=== PATIENT | female | born 1980 | race Caucasian/White ===

== ENCOUNTER → 2016-09-22 | Outpatient (CLI) | payer OTHER | LOC: LABWHC1 09:16 | PROVIDERS: ATTEND Internal Medicine | DX: E03.9 Hypothyroidism, unspecified (principal) | CPT/HCPCS: 36415; 84439; 84443 ==

== ENCOUNTER 2017-02-06 11:38 | Emergency (ER) | payer OTHER ==
[2017-02-06] MEDS ORDERED: DIPH,PERTUS(ACELL)TETVAC-LF 0.5 ML VIAL IM ONE (11:59)
[2017-02-06] MEDS ORDERED: TOBRAMYCIN 0.3% OPHTH OINT 3.5 GM TUBE RIGHT EYE STA (12:05)
--- NOTE | 2017-02-06 12:07 | ED ---
General Adult HPI - General Chief complaint: Eye Problems Stated complaint: RT EYE INJURY Time Seen by Provider: 02/06/17 11:47 Source: patient, family, RN notes reviewed Mode of arrival: ambulatory Limitations: no limitations - History of Present Illness Initial comments: Chief complaint history of present illness a 36-year-old female here with family. She reports she accidentally touched her right eye with a piece of paper on the job last night she presents today with discomfort to her eye and tearing. - Related Data Home Medications Medication Instructions Recorded Confirmed Levothyroxine Sodium [Synthroid] 75 mcg PO DAILY 02/13/15 03/14/15 Lisinopril [Zestril] 5 mg PO DAILY 02/13/15 03/14/15 Pioglitazone [Actos] 30 mg PO DAILY 02/13/15 03/14/15 metFORMIN HCL 1,000 mg PO BID 02/13/15 03/14/15 sitaGLIPtin [Januvia] 100 mg PO DAILY 02/13/15 03/14/15 Allergies Allergy/AdvReac Type Severity Reaction Status Date / Time No Known Allergies Allergy Verified 02/06/17 11:45 Review of Systems ROS Statement: Those systems with pertinent positive or pertinent negative responses have been documented in the HPI. Review of systems no other complaints or problems other than discomfort to her right eye as noted in the chief complaint. The patient's tetanus shot needs to be updated. All systems are reviewed. Past medical problems significant for diabetes for the past 5 years. Her surgeries include left toe amputation. She' s also had cataract surgery and Lasix surgery on her eyes. Family history no cancers. Patient denies ALLERGIES, denies smoking, denies alcohol use. ROS Other: All systems not noted in ROS Statement are negative. Past Medical History Past Medical History: Diabetes Mellitus, Thyroid Disorder Additional Past Medical History / Comment(s): heart murmus, neuropathy hands and feet, wound 2nd toe left foot History of Any Multi-Drug Resistant Organisms: MRSA Date of last positivie culture/infection: 07/19/2011 MDRO Source:: left great toe Additional Past Surgical History / Comment(s): amputation left great toe Past Anesthesia/Blood Transfusion Reactions: No Reported Reaction Past Psychological History: No Psychological Hx Reported Smoking Status: Never smoker Past Alcohol Use History: None Reported Past Drug Use History: None Reported - Past Family History Mother Family Medical History: No Reported History General Exam - General Exam Comments Initial Comments: General: The patient is awake and alert, complaining of discomfort to her right eye is noted in the chief complaint. Vital signs shows temperature 98.0 pulse 71 respiratory rate 18 pulse ox on percent room air blood pressure 121/71 Eye: Pupils are equal, round and reactive to light, extra-ocular movements are intact ; there is normal conjunctiva bilaterally. Extraocular movements normal. Visual acuity left eye 20/70 right eye 20/70 and together 20/70. Examination of the eye with floor seen after being numbed with proparacaine finds a small area of irritation at approximately the 8 o'clock position. Examination with the ophthalmoscope shows no significant injury to the cornea other than fluorescein uptake. No ulcer. The patient will be placed on Tobrex ophthalmic ointment for comfort with an ice pack over the eye as needed. And ibuprofen for pain. If not Cohen's of normal 36 hours she been advised follow-up with her eye doctor who she sees regularly. Limitations: no limitations Course Vital Signs 02/06/17 11:43 Temperature 98.0 F Pulse Rate 71 Respiratory 18 Rate Blood Pressure 121/71 O2 Sat by Pulse 100 Oximetry Disposition Clinical Impression: Right corneal abrasion Disposition: HOME SELF-CARE Condition: Fair Instructions: Corneal Abrasion (ED) Additional Instructions: Follow-up with your construction flagger if not 100% normal and [address] Tobrex ophthalmic ointment in the affected eye every 4-6 hours for comfort Referrals: Leni Flanagan MD [Primary Care Provider] - 1-2 days Time of Disposition: 12:07
[2017-02-06 12:29] VITALS: BP 126/66; PULSE 60; RESP 16; TEMP 97.8
== END 2017-02-06 12:46 | disposition home or self-care (01) ==
LOC: EC 11:38
DX: S05.01XA Injury of conjunctiva and corneal abrasion without foreign body, right eye, initial encounter (principal); E11.9 Type 2 diabetes mellitus without complications; E07.9 Disorder of thyroid, unspecified; Z23 Encounter for immunization; Z79.84 Long term (current) use of oral hypoglycemic drugs; Z79.899 Other long term (current) drug therapy; W20.8XXA Other cause of strike by thrown, projected or falling object, initial encounter; Y99.0 Civilian activity done for income or pay; Y92.69 Other specified industrial and construction area as the place of occurrence of the external cause
CPT/HCPCS: 90471; 90715; 99283

== ENCOUNTER → 2017-04-22 | Outpatient (CLI) | payer OTHER | END | disposition home or self-care (01) | LOC: LABWHC1 09:53 | PROVIDERS: ATTEND Internal Medicine | DX: E03.9 Hypothyroidism, unspecified (principal) | CPT/HCPCS: 36415; 84439; 84443 ==

== ENCOUNTER → 2019-01-13 | Outpatient (CLI) | payer OTHER ==
--- NOTE | 2019-01-13 14:45 | US ---
EXAMINATION TYPE: US abdomen complete DATE OF EXAM: 01/13/2019 COMPARISON: NONE CLINICAL HISTORY: R10.11 RUQ ABD PAIN, patient states that she has had vomiting x 4 days and hasn't e aten for 5 days EXAM MEASUREMENTS: Liver Length: 12.5 cm Gallbladder Wall: 0.1 cm CBD: 0.3 cm Spleen: 10.2 cm Right Kidney: 12.4 x 4.1 x 4.2 cm Left Kidney: 11.4 x 5.1 x 4.2 cm Severe overlying bowel gas, obscuring pancreas and left lobe of liver Pancreas: Obscured by bowel gas Liver: wnl Gallbladder: wnl Evidence for sonographic Moore's sign: no CBD: wnl Spleen: wnl Right Kidney: No hydronephrosis or masses seen, junctional parenchymal defect Left Kidney: No hydronephrosis or masses seen Upper IVC: wnl Abd Aorta: partially obscured, portions visualized wnl The liver is homogenous. The intrahepatic portion of the IVC and proximal abdominal aorta are within normal limits. There is no evidence of cholelithiasis. Common bile duct is unremarkable. The visu alized portions of the pancreas are homogenous. The spleen is unremarkable. Kidneys are symmetric a nd free of hydronephrosis. No renal lesions are seen. IMPRESSION: No significant abnormality appreciated.
== END | disposition home or self-care (01) ==
LOC: RADUSWWP 13:54
PROVIDERS: ATTEND Internal Medicine
DX: R10.11 Right upper quadrant pain (principal)
CPT/HCPCS: 76700

== ENCOUNTER 2019-01-15 07:32 | Observation (INO) | payer OTHER ==
[2019-01-15] MEDS ORDERED: ONDANSETRON 4 MG/2 ML VIAL IVP STA (07:54)
[2019-01-15] MEDS ORDERED: SODIUM CHLORIDE 0.9% 1,000 ML IV STA (07:54)
--- NOTE | 2019-01-15 08:07 | ED ---
General Adult HPI - General Chief complaint: Nausea/Vomiting/Diarrhea Stated complaint: vomiting Time Seen by Provider: 01/15/19 07:37 Source: patient, RN notes reviewed, old records reviewed Mode of arrival: ambulatory Limitations: no limitations - History of Present Illness Initial comments: 38-year-old female history of hypertension diabetes presents for evaluation of nausea vomiting which began 5 days prior. She had initially quite severe vomiting. This had subsided for approximately 24 hours and then returned this morning. She has not been able to tolerate much to be or drink over the past 5 days. She denies diarrhea. She's had some mild epigastric abdominal pain worse with vomiting. She had an ultrasound done as an outpatient 2 days prior which was reported as normal. Denies fever or chills. Denies chest pain or dyspnea. - Related Data Home Medications Medication Instructions Recorded Confirmed Lisinopril [Zestril] 5 mg PO DAILY 02/13/15 01/15/19 Pioglitazone [Actos] 30 mg PO DAILY 02/13/15 01/15/19 metFORMIN HCL 1,000 mg PO BID 02/13/15 01/15/19 Atorvastatin [Lipitor] 40 mg PO HS 02/06/17 01/15/19 Levothyroxine Sodium [Synthroid] 125 mcg PO DAILY 02/06/17 01/15/19 sitaGLIPtin [Januvia] 50 mg PO DAILY 02/06/17 01/15/19 Celexa (Unknown Dose) 1 tab PO DAILY 01/15/19 01/15/19 Allergies Allergy/AdvReac Type Severity Reaction Status Date / Time No Known Allergies Allergy Verified 01/15/19 08:50 Review of Systems ROS Statement: Those systems with pertinent positive or pertinent negative responses have been documented in the HPI. ROS Other: All systems not noted in ROS Statement are negative. Past Medical History Past Medical History: Diabetes Mellitus, Thyroid Disorder Additional Past Medical History / Comment(s): heart murmus, neuropathy hands and feet, wound 2nd toe left foot History of Any Multi-Drug Resistant Organisms: MRSA Date of last positivie culture/infection: 07/19/2011 MDRO Source:: left great toe Additional Past Surgical History / Comment(s): amputation left great toe Past Anesthesia/Blood Transfusion Reactions: No Reported Reaction Past Psychological History: No Psychological Hx Reported Smoking Status: Never smoker Past Alcohol Use History: None Reported Past Drug Use History: None Reported - Past Family History Mother Family Medical History: No Reported History General Exam Limitations: no limitations General appearance: alert, in no apparent distress Head exam: Present: atraumatic, normocephalic Eye exam: Present: normal appearance, PERRL ENT exam: Present: mucous membranes dry Neck exam: Present: normal inspection. Absent: tenderness, meningismus Respiratory exam: Present: normal lung sounds bilaterally. Absent: respiratory distress, wheezes Cardiovascular Exam: Present: regular rate, normal rhythm GI/Abdominal exam: Present: soft. Absent: distended, tenderness, guarding, rebound Extremities exam: Present: normal inspection, normal capillary refill. Absent: pedal edema, calf tenderness Neurological exam: Present: alert, oriented X3, CN II-XII intact. Absent: motor sensory deficit Psychiatric exam: Present: normal affect, normal mood Skin exam: Present: warm, dry, intact, cyanosis, diaphoretic Course Vital Signs 01/15/19 01/15/19 01/15/19 07:37 09:00 09:30 Temperature 98.3 F Pulse Rate 83 Respiratory 16 18 18 Rate Blood Pressure 127/80 163/92 167/85 O2 Sat by Pulse 99 97 98 Oximetry EKG Findings - EKG Comments: EKG Findings:: Normal sinus rhythm, rate of 67, ME interval 162, QRS duration 96, QTC [address] segment elevation. Medical Decision Making - Medical Decision Making 38-year-old female past medical history of hypertension, diabetes presenting with ongoing nausea vomiting for 5 days. Patient does appear dehydrated on exam. Genital outpatient ultrasound of the abdomen 2 days ago which was reviewed and was unremarkable. X-ray negative for obstruction or free air today. Patient has a transaminitis including hyponatremia sodium 135, chloride is 91. She has calcium of health 0.6. Urinalysis is negative. She has persistent symptoms of nausea and vomiting. She will be admitted for continuous IV hydration. Magnesium, phosphorus, PTH, ionized calcium will be added to laboratory testing, these are pending. EKG was obtained and this shows sinus rhythm with normal intervals, and QRS complex. Diagnosis: Nausea vomiting, dehydration, hypercalcemia - Lab Data Result diagrams: 01/15/19 08:30 01/15/19 08:30 Lab Results 01/15/19 01/15/19 01/15/19 Range/Units 08:30 08:30 09:18 WBC 8.3 (3.8-10.6) k/uL RBC 4.42 (3.80-5.40) m/uL Hgb 13.0 (11.4-16.0) gm/dL Hct 38.6 (34.0-46.0) % MCV 87.4 (80.0-100.0) fL MCH 29.5 (25.0-35.0) pg MCHC 33.7 (31.0-37.0) g/dL RDW 13.6 (11.5-15.5) % Plt Count 305 (150-450) k/uL Neutrophils % 75 % Lymphocytes % 15 % Monocytes % 6 % Eosinophils % 1 % Basophils % 0 % Neutrophils # 6.2 (1.3-7.7) k/uL Lymphocytes # 1.3 (1.0-4.8) k/uL Monocytes # 0.5 (0-1.0) k/uL Eosinophils # 0.1 (0-0.7) k/uL Basophils # 0.0 (0-0.2) k/uL Sodium 135 L (137-145) mmol/L Potassium 3.6 (3.5-5.1) mmol/L Chloride 91 L (98-107) mmol/L Carbon Dioxide 30 (22-30) mmol/L Anion Gap 14 mmol/L BUN 10 (7-17) mg/dL Creatinine 0.89 (0.52-1.04) mg/dL Est GFR (CKD-EPI)AfAm >90 (>60 ml/min/1.73 sqM) Est GFR (CKD-EPI)NonAf 83 (>60 ml/min/1.73 sqM) Glucose 146 H (74-99) mg/dL Calcium 12.6 H (8.4-10.2) mg/dL Total Bilirubin 0.8 (0.2-1.3) mg/dL AST 28 (14-36) U/L ALT 21 (9-52) U/L Alkaline Phosphatase 74 (38-126) U/L Total Protein 9.3 H (6.3-8.2) g/dL Albumin 5.3 H (3.5-5.0) g/dL Amylase 61 (30-110) U/L Lipase 111 (23-300) U/L Urine Color Yellow Urine Appearance Clear (Clear) Urine pH 7.0 (5.0-8.0) Ur Specific [place] 1.009 (1.001-1.035) Urine Protein Negative (Negative) Urine Glucose (UA) Negative (Negative) Urine Ketones Negative (Negative) Urine Blood Negative (Negative) Urine Nitrite Negative (Negative) Urine Bilirubin Negative (Negative) Urine Urobilinogen <2.0 (<2.0) mg/dL Ur Leukocyte Esterase Negative (Negative) Disposition Clinical Impression: Dehydration, Nausea & vomiting, Hypercalcemia Disposition: ADMITTED IP TO THIS [facility] Condition: Stable Is patient prescribed a controlled substance at d/c from ED?: No Referrals: Leni Flanagan MD [Primary Care Provider] - 1-2 days Decision to Admit Reason: Admit from EC Decision Date: 01/15/19 Decision Time: 09:49
--- NOTE | 2019-01-15 08:48 | XR ---
EXAMINATION TYPE: XR KUB , 2 VIEWS DATE OF EXAM ORDERED: 01/15/2019 HISTORY: abdominal pain. COMPARISON: None. FINDINGS: The lung bases are clear. Within the abdomen, the abdominal gas pattern is normal. There is no evidence of obstruction or free air. No unusual calcifications are seen. There is a mild dextroscoliosis present. IMPRESSION: NO ACUTE INTRA-ABDOMINAL ABNORMALITY.
[2019-01-15 09:19] LABS: Basophils % (A) 0 %; Eosinophils # (A) 0.1 k/uL (0-0.7); Eosinophils % (A) 1 %; HCT 38.6 % (34.0-46.0); Lymphocytes # (A) 1.3 k/uL (1.0-4.8); Lymphocytes % (A) 15 %; MCH 29.5 pg (25.0-35.0); MCHC 33.7 g/dL (31.0-37.0); MCV 87.4 fL (80.0-100.0); Mean Platelet Volume 6.5; Monocytes # (A) 0.5 k/uL (0-1.0); Monocytes % (A) 6 %; Neutrophils # (A) 6.2 k/uL (1.3-7.7); Neutrophils % (A) 75 %; Platelet Count 305 k/uL (150-450); RBC 4.42 m/uL (3.80-5.40); RDW 13.6 % (11.5-15.5); WBC 8.3 k/uL (3.8-10.6)
[2019-01-15 09:32] LABS: ALT 21 U/L (9-52); AST 28 U/L (14-36); African American GFR (CKD) >90 (>60 ml/min/1.73 sqM); Albumin 5.3 g/dL (3.5-5.0); Alkaline Phosphatase 74 U/L (38-126); Amylase 61 U/L (30-110); Anion Gap 14 mmol/L; Blood Urea Nitrogen 10 mg/dL (7-17); Calcium 12.6 mg/dL (8.4-10.2); Carbon Dioxide 30 mmol/L (22-30); Chloride 91 mmol/L (98-107); Glucose 146 mg/dL (74-99); Lipase 111 U/L (23-300); Potassium 3.6 mmol/L (3.5-5.1); Sodium 135 mmol/L (137-145); Total Bilirubin 0.8 mg/dL (0.2-1.3); Total Protein 9.3 g/dL (6.3-8.2)
[2019-01-15 09:35] LABS: Appearance,Urine Clear (Clear); Bilirubin,Urine Negative (Negative); Blood,Urine Negative (Negative); Color,Urine Yellow; Glucose,Urine (UA) Negative (Negative); Ketones,Urine Negative (Negative); Leukocyte Esterase,Urine Negative (Negative); Nitrite,Urine Negative (Negative); Protein,Urine Negative (Negative); Specific Gravity,Urine 1.009 (1.001-1.035); Urobilinogen,Urine <2.0 mg/dL (<2.0)
[2019-01-15] MEDS ORDERED: SODIUM CHLORIDE 0.9% 1,000 ML IV ONE (09:39)
[2019-01-15 10:09] LABS: Ionized Calcium 5.8 mg/dL (4.5-5.3)
[2019-01-15 10:19] LABS: Magnesium 1.5 mg/dL (1.6-2.3); Phosphorus 4.1 mg/dL (2.5-4.5)
[2019-01-15] MEDS ORDERED: MORPHINE SULFATE 4 MG/ML SYRINGE IV PRN (11:47)
[2019-01-15] MEDS ORDERED: NALOXONE 0.4 MG/ML 1 ML VIAL IV PRN (11:47)
[2019-01-15] MEDS ORDERED: ONDANSETRON 4 MG/2 ML VIAL IVP PRN (11:47)
[2019-01-15] MEDS: SODIUM CHLORIDE 0.9% 1,000 ML IV SCH ×2 (12:05→23:54)
[2019-01-15 12:55] VITALS: BMI 31.1
[2019-01-15] MEDS: MAGNESIUM SULFATE-D5W PMX 1 GM in DEXTROSE/WATER 1 100ML.BAG IVPB SCH ×2 (13:46→15:19)
[2019-01-15] MEDS: INSULIN ASPART (NovoLOG) 100 UNIT/ML VIAL SQ SCH (17:42)
[2019-01-15] MEDS ORDERED: FAMOTIDINE 20 MG/2 ML VIAL IV SCH (17:52)
--- NOTE | 2019-01-15 17:55 | P.HPIM ---
History of Present Illness H&P Date: 01/15/19 Chief Complaint: Intractable nausea and vomiting Patient is a 38-year-old female with a known history of hypertension, diabetes type 2 non-insulin dependent, diabetic peripheral neuropathy, hyperlipidemia and depression came to ER with complaints of nausea vomiting for the past 5 days. Patient was seen at [facility] on Wednesday where she had ultrasound of the abdomen which showed no significant abnormality. Patient is still having nausea and vomiting and abdominal discomfort with vomiting which made her to come to the hospital ER for further management. Denied any diarrhea. No fever no chills. No chest pain or shortness of breath. No cough or sputum production. Patient denied any previous history of similar episodes. Denied alcohol use denied any marijuana use. KUB x-ray showed no acute abnormalities. Review of Systems Constitutional: Patient denies any fever or chills . No generalized weakness or weight loss. Abdomen: Nausea vomiting and epigastric abdominal discomfort. No diarrhea.. Cardiovascular: Patient denies any chest pain or short of breath no palpitations. Respiratory: patient denied any cough is from production. No shortness of breath Neurologic: Patient denied any numbness or tingling headache. Musculoskeletal: Patient denies any complaints of joint swelling or deformity. Skin: Negative Psychiatric: Negative Endocrine: No heat or cold intolerance. No recent weight gain. Genitourinary: No dysuria or hematuria. All other 14 point ROS negative except the above Past Medical History Past Medical History: Diabetes Mellitus, Hypertension, Thyroid Disorder Additional Past Medical History / Comment(s): heart murmur, neuropathy hands and feet History of Any Multi-Drug Resistant Organisms: MRSA Date of last positivie culture/infection: 07/19/2011 MDRO Source:: left great toe Additional Past Surgical History / Comment(s): amputation left great toe Past Anesthesia/Blood Transfusion Reactions: No Reported Reaction Past Psychological History: Anxiety, Depression Smoking Status: Never smoker Past Alcohol Use History: None Reported Past Drug Use History: None Reported - Past Family History Father Family Medical History: Diabetes Mellitus Mother Family Medical History: No Reported History Medications and Allergies Home Medications Medication Instructions Recorded Confirmed Type Lisinopril [Zestril] 5 mg PO DAILY 02/13/15 01/15/19 History Pioglitazone [Actos] 30 mg PO DAILY 02/13/15 01/15/19 History metFORMIN HCL 1,000 mg PO BID 02/13/15 01/15/19 History Atorvastatin [Lipitor] 40 mg PO HS 02/06/17 01/15/19 History Levothyroxine Sodium [Synthroid] 125 mcg PO DAILY 02/06/17 01/15/19 History sitaGLIPtin [Januvia] 50 mg PO DAILY 02/06/17 01/15/19 History Celexa (Unknown Dose) 1 tab PO DAILY 01/15/19 01/15/19 History Allergies Allergy/AdvReac Type Severity Reaction Status Date / Time No Known Allergies Allergy Verified 01/15/19 12:43 Physical Exam Vitals: Vital Signs Temp Pulse Pulse Resp BP BP Pulse Ox 01/15/19 12:42 97.6 F 62 16 167/89 100 01/15/19 12:06 98.2 F 64 18 145/84 100 01/15/19 12:00 61 18 133/95 100 01/15/19 11:30 158/89 01/15/19 11:00 58 L 167/92 100 01/15/19 10:30 66 161/91 98 01/15/19 10:00 70 18 163/88 97 01/15/19 09:30 18 167/85 98 01/15/19 09:00 18 163/92 97 01/15/19 07:37 98.3 F 83 16 127/80 99 Intake and Output 01/14/19 01/15/19 01/15/19 22:59 06:59 14:59 Other: # Voids 1 Weight 82.327 kg PHYSICAL EXAMINATION: Patient is lying in the bed comfortably, no acute distress, awake alert and oriented.. HEENT: Normocephalic. Neck is supple. Pupils reactive. Nostrils clear. Oral cavity is moist. Ears reveal no drainage. Neck reveals no JVD, carotid bruits, or thyromegaly. CHEST EXAMINATION: Trachea is central. Symmetrical expansion. Lung jenkins clear to auscultation and percussion. CARDIAC: Normal S1, S2 with no gallops. No murmurs ABDOMEN: Soft. Bowel sounds normal. No organomegaly. No abdominal bruits. Extremities: reveal no edema. No clubbing or cyanosis Neurologically awake, alert, oriented x3 with well-coordinated movements. No focal deficits noted Skin: No rash or skin lesions. Psychiatric: Coperative. Nonsuicidal Musculoskeletal: No joint swelling or deformity. Normal range of motion. Results CBC & Chem 7: 01/15/19 08:30 01/15/19 08:30 Labs: Abnormal Lab Results - Last 24 Hours (Table) 01/15/19 01/15/19 Range/Units 08:30 09:50 Sodium 135 L (137-145) mmol/L Chloride 91 L (98-107) mmol/L Glucose 146 H (74-99) mg/dL Calcium 12.6 H (8.4-10.2) mg/dL Ionized Calcium Carlos 5.8 H (4.5-5.3) mg/dL Magnesium 1.5 L (1.6-2.3) mg/dL Total Protein 9.3 H (6.3-8.2) g/dL Albumin 5.3 H (3.5-5.0) g/dL Thrombosis Risk Factor Assmnt - DVT/VTE Prophylaxis DVT/VTE Prophylaxis: Pharmacologic Prophylaxis ordered - Choose All That Apply Any of the Below Risk Factors Present?: Yes Each Factor Represents 1 point: Obesity (BMI >25), Varicose veins Thrombosis Risk Factor Assessment Total Risk Factor Score: 2 Thrombosis Risk Factor Assessment Level: Low Risk Assessment and Plan Assessment: Intractable nausea vomiting and epigastric discomfort. Possible gastritis versus viral gastroenteritis. Diabetes type 2 [id number] Diabetic peripheral neuropathy Hypertension Hyperlipidemia Hypothyroidism Depression DVT prophylaxis Plan: Patient be continued on IV hydration with normal saline. Continue with Zofran when necessary and will also start on Pepcid 20 mg IV twice a day. Insulin sliding scale and Accu-Cheks. Will hold oral hypoglycemics until patient tolerates oral diet. Started back on home medications. Further recommendations based on the clinical course. Time with Patient: Greater than 30
[2019-01-15 17:57] LABS: Glucose,Whole Blood 124 mg/dL (75-99)
[2019-01-15 20:43] LABS: Glucose,Whole Blood 128 mg/dL (75-99)
[2019-01-15] MEDS: FAMOTIDINE 20 MG/2 ML VIAL IV SCH (20:44)
[2019-01-15] MEDS ORDERED: ATORVASTATIN 40 MG TAB PO SCH (21:00)
[2019-01-16] MEDS ORDERED: LEVOTHYROXINE 125 MCG TAB PO SCH (06:30)
[2019-01-16 06:58] LABS: Glucose,Whole Blood 124 mg/dL (75-99)
[2019-01-16] MEDS: INSULIN ASPART (NovoLOG) 100 UNIT/ML VIAL SQ SCH ×2 (07:01→12:25)
[2019-01-16 08:38] VITALS: RESP 16
[2019-01-16] MEDS: SODIUM CHLORIDE 0.9% 1,000 ML IV SCH (08:55)
[2019-01-16] MEDS: FAMOTIDINE 20 MG/2 ML VIAL IV SCH (08:56)
[2019-01-16] MEDS ORDERED: CELEXA 10 MG PO SCH (09:00)
[2019-01-16] MEDS ORDERED: CITALOPRAM HYDROBROMIDE 10 MG TAB PO SCH ×2 (09:00)
[2019-01-16] MEDS ORDERED: CELEXA PO SCH (09:00)
[2019-01-16 11:00] LABS: Basophils % (A) 0 %; Eosinophils # (A) 0.1 k/uL (0-0.7); Eosinophils % (A) 2 %; HCT 35.3 % (34.0-46.0); HGB 11.4 gm/dL (11.4-16.0); Lymphocytes # (A) 0.9 k/uL (1.0-4.8); Lymphocytes % (A) 17 %; MCH 28.8 pg (25.0-35.0); MCHC 32.2 g/dL (31.0-37.0); MCV 89.4 fL (80.0-100.0); Mean Platelet Volume 6.4; Monocytes # (A) 0.3 k/uL (0-1.0); Monocytes % (A) 5 %; Neutrophils % (A) 74 %; Platelet Count 278 k/uL (150-450); RBC 3.95 m/uL (3.80-5.40); RDW 13.8 % (11.5-15.5); WBC 5.4 k/uL (3.8-10.6)
[2019-01-16 11:25] LABS: ALT 18 U/L (9-52); AST 21 U/L (14-36); African American GFR (CKD) >90 (>60 ml/min/1.73 sqM); Albumin 4.1 g/dL (3.5-5.0); Alkaline Phosphatase 54 U/L (38-126); Anion Gap 10 mmol/L; Blood Urea Nitrogen 9 mg/dL (7-17); Calcium 9.3 mg/dL (8.4-10.2); Carbon Dioxide 26 mmol/L (22-30); Chloride 103 mmol/L (98-107); Glucose 112 mg/dL (74-99); Potassium 4.2 mmol/L (3.5-5.1); Sodium 139 mmol/L (137-145); Total Bilirubin 0.5 mg/dL (0.2-1.3); Total Protein 7.3 g/dL (6.3-8.2)
[2019-01-16] MEDS ORDERED: Magnesium Replacement Protocol 1 EACH MISC MISCELLANE PRN (12:00)
[2019-01-16 12:14] LABS: Glucose,Whole Blood 185 mg/dL (75-99)
[2019-01-16 12:33] VITALS: BP 152/77; PULSE 60; TEMP 98.2
--- NOTE | 2019-01-17 00:23 | P.DS ---
Providers Date of admission: 01/15/19 11:47 Attending physician: Danyel Gaxiola Primary care physician: Leni Flanagan [place] [facility] Course: Diagnoses: Intractable nausea vomiting and epigastric discomfort. Possible gastritis versus viral gastroenteritis. Diabetes type 2 [id number] Diabetic peripheral neuropathy Hypertension Hyperlipidemia History of Hypothyroidism History of Depression, not an active issue Hospital course: Patient is a 38-year-old female with a known history of hypertension, diabetes type 2 non-insulin dependent, diabetic peripheral neuropathy, hyperlipidemia and depression came to ER with complaints of nausea vomiting for the past 5 days. Denied any diarrhea. No fever no chills. No chest pain or shortness of breath. No cough or sputum production. Patient was started on symptomatic treatment with antiemetic and parenteral hydration, as well as antiacids, patient did not need pain medication. With treatment patient felt interval improvement, her nausea vomiting has resolved, no abdominal pain, occasionally she has some bur teto when she lies down but has resolved either now. She is tolerated diet well and patient thinks she can go home. Problems and management plan were discussed with the patient and he verbalized understanding and acceptance Patient was found stable and can be discharged home however he needs follow-up as an outpatient. Patient was instructed to follow up with her PCP Dr. Flanagan in one week and she agrees and wants to make her own appointments. Gen: patient is a AAOx3, no distress, obese CVS: S1-S2, RRR, no murmur Lungs: B/L CTA, no wheezing Abdomen: soft, no distention, no tenderness, positive bowel sounds Extremity: no leg edema or induration Time spent more than 35 minutes Patient Condition at Discharge: Stable Plan - Discharge Summary Discharge Rx Participant: No New Discharge Prescriptions: New Famotidine [Pepcid] 20 mg PO BID #30 tablet Continue Pioglitazone [Actos] 30 mg PO DAILY Lisinopril [Zestril] 5 mg PO DAILY metFORMIN HCL 1,000 mg PO BID sitaGLIPtin [Januvia] 50 mg PO DAILY Levothyroxine Sodium [Synthroid] 125 mcg PO DAILY Atorvastatin [Lipitor] 40 mg PO HS Citalopram Hydrobromide [CeleXA] 20 mg PO DAILY Discharge Medication List Lisinopril [Zestril] 5 mg PO DAILY 02/13/15 [History] Pioglitazone [Actos] 30 mg PO DAILY 02/13/15 [History] metFORMIN HCL 1,000 mg PO BID 02/13/15 [History] Atorvastatin [Lipitor] 40 mg PO HS 02/06/17 [History] Levothyroxine Sodium [Synthroid] 125 mcg PO DAILY 02/06/17 [History] sitaGLIPtin [Januvia] 50 mg PO DAILY 02/06/17 [History] Citalopram Hydrobromide [CeleXA] 20 mg PO DAILY 01/16/19 [History] Famotidine [Pepcid] 20 mg PO BID #30 tablet 01/16/19 [Rx] Follow up Appointment(s)/Referral(s): Leni Flanagan MD [Primary Care Provider] - 1-2 days Patient Instructions/Handouts: Dehydration (GEN), Hypercalcemia (GEN) Activity/Diet/Wound Care/Special Instructions: Diet: Regular Activity as tolerated Discharge Disposition: HOME SELF-CARE
[2019-01-17] MEDS ORDERED: FAMOTIDINE 20 MG TAB PO SCH (09:00)
== END 2019-01-16 15:02 | disposition home or self-care (01) ==
LOC: EC 07:32 → 6PED 11:47
PROVIDERS: ADMIT Hospitalist; ATTEND Hospitalist
DX: R11.2 Nausea with vomiting, unspecified (principal); E86.0 Dehydration; R10.13 Epigastric pain; E11.42 Type 2 diabetes mellitus with diabetic polyneuropathy; I10 Essential (primary) hypertension; E83.52 Hypercalcemia; E78.5 Hyperlipidemia, unspecified; F32.9 Major depressive disorder, single episode, unspecified; E87.1 Hypo-osmolality and hyponatremia; E03.9 Hypothyroidism, unspecified; R74.0 Nonspecific elevation of levels of transaminase and lactic acid dehydrogenase [LDH]; F41.9 Anxiety disorder, unspecified; I83.90 Asymptomatic varicose veins of unspecified lower extremity; E66.9 Obesity, unspecified; Z68.31 Body mass index [BMI] 31.0-31.9, adult; Z79.84 Long term (current) use of oral hypoglycemic drugs; Z79.890 Hormone replacement therapy; Z79.899 Other long term (current) drug therapy; Z86.14 Personal history of Methicillin resistant Staphylococcus aureus infection; Z89.412 Acquired absence of left great toe; Z83.3 Family history of diabetes mellitus
CPT/HCPCS: 96361 ×2; 96365; 96366; 96375 ×2; 96376; 99285; 36415; 93005; 80053 ×2; 82330; 82150; 83690; 83735 ×2; 84100; 85025 ×2; 81003; 83970; 83036; 74018; G0378 ×2; J2405; J3475

== ENCOUNTER 2019-03-05 16:53 | Emergency (ER) | payer OTHER ==
[2019-03-05 16:57] VITALS: RESP 16
[2019-03-05] MEDS ORDERED: SODIUM CHLORIDE 0.9% 1,000 ML IV STA (17:29)
[2019-03-05] MEDS ORDERED: ONDANSETRON 4 MG/2 ML VIAL IVP STA (17:29)
[2019-03-05 17:54] LABS: Basophils % (A) 0 %; Eosinophils % (A) 1 %; HCT 38.5 % (34.0-46.0); Lymphocytes # (A) 0.5 k/uL (1.0-4.8); Lymphocytes % (A) 8 %; MCH 29.4 pg (25.0-35.0); MCHC 33.9 g/dL (31.0-37.0); MCV 86.8 fL (80.0-100.0); Mean Platelet Volume 6.8; Monocytes # (A) 0.1 k/uL (0-1.0); Monocytes % (A) 2 %; Neutrophils # (A) 5.4 k/uL (1.3-7.7); Neutrophils % (A) 88 %; Platelet Count 265 k/uL (150-450); RBC 4.43 m/uL (3.80-5.40); RDW 14.6 % (11.5-15.5); WBC 6.2 k/uL (3.8-10.6)
[2019-03-05 17:58] LABS: Amorphous Sediment,Urine Moderate /hpf; Appearance,Urine Cloudy (Clear); Bilirubin,Urine Negative (Negative); Blood,Urine Negative (Negative); Color,Urine Yellow; Glucose,Urine (UA) Negative (Negative); Hyaline Casts,Urine 1 /lpf (0-2); Ketones,Urine 2+ (Negative); Leukocyte Esterase,Urine Negative (Negative); Mucus,Urine Moderate /hpf; Nitrite,Urine Negative (Negative); PH, Urine 5.5 (5.0-8.0); Protein,Urine Trace (Negative); RBC,Urine 1 /hpf (0-5); Specific Gravity,Urine 1.027 (1.001-1.035); Squamous Epithelial Cell,Urine 2 /hpf (0-4); Urobilinogen,Urine <2.0 mg/dL (<2.0); WBC,Urine 3 /hpf (0-5)
[2019-03-05 18:01] LABS: ALT 22 U/L (9-52); AST 33 U/L (14-36); African American GFR (CKD) >90 (>60 ml/min/1.73 sqM); Albumin 4.9 g/dL (3.5-5.0); Alkaline Phosphatase 78 U/L (38-126); Amylase 48 U/L (30-110); Anion Gap 13 mmol/L; Blood Urea Nitrogen 16 mg/dL (7-17); Calcium 10.3 mg/dL (8.4-10.2); Carbon Dioxide 23 mmol/L (22-30); Chloride 102 mmol/L (98-107); Glucose 169 mg/dL (74-99); Non-African American GFR(CKD) >90 (>60 ml/min/1.73 sqM); Potassium 4.6 mmol/L (3.5-5.1); Sodium 138 mmol/L (137-145); Total Bilirubin 0.7 mg/dL (0.2-1.3); Total Protein 8.7 g/dL (6.3-8.2)
--- NOTE | 2019-03-05 18:07 | ED ---
Nausea/Vomiting/Diarrhea HPI - General Chief complaint: Nausea/Vomiting/Diarrhea Stated complaint: nausea, vomiting Time Seen by Provider: 03/05/19 17:11 Source: patient Mode of arrival: ambulatory Limitations: no limitations - History of Present Illness Initial comments: Patient is a 38-year-old female presenting to the emergency Department with complaints of nausea and vomiting since last night. Patient states she also had diarrhea last night but that has since improved today. Patient denies fever, chills, urinary symptoms, chest pain, headache, cough, shortness of breath. Patient denies sick contacts. Patient denies chance of . Patient states she was recently hospitalized for hypercalcemia the end of December. Upon arrival to the ER vital signs are stable, afebrile. Patient has no other complaints at that time. - Related Data Home Medications Medication Instructions Recorded Confirmed Lisinopril [Zestril] 5 mg PO DAILY 02/13/15 01/15/19 Pioglitazone [Actos] 30 mg PO DAILY 02/13/15 01/15/19 metFORMIN HCL 1,000 mg PO BID 02/13/15 01/15/19 Atorvastatin [Lipitor] 40 mg PO HS 02/06/17 01/15/19 Levothyroxine Sodium [Synthroid] 125 mcg PO DAILY 02/06/17 01/15/19 sitaGLIPtin [Januvia] 50 mg PO DAILY 02/06/17 01/15/19 Citalopram Hydrobromide [CeleXA] 20 mg PO DAILY 01/16/19 01/16/19 Previous Rx's Medication Instructions Recorded Famotidine [Pepcid] 20 mg PO BID #30 tablet 01/16/19 Ondansetron Odt [Zofran Odt] 4 mg PO Q8HR PRN #10 tab 03/05/19 Allergies Allergy/AdvReac Type Severity Reaction Status Date / Time No Known Allergies Allergy Verified 03/05/19 16:57 Review of Systems ROS Statement: Those systems with pertinent positive or pertinent negative responses have been documented in the HPI. ROS Other: All systems not noted in ROS Statement are negative. Past Medical History Past Medical History: Diabetes Mellitus, Hypertension, Thyroid Disorder Additional Past Medical History / Comment(s): heart murmur, neuropathy hands and feet History of Any Multi-Drug Resistant Organisms: MRSA Date of last positivie culture/infection: 07/19/2011 MDRO Source:: left great toe Additional Past Surgical History / Comment(s): amputation left great toe Past Anesthesia/Blood Transfusion Reactions: No Reported Reaction Past Psychological History: Anxiety, Depression Smoking Status: Never smoker Past Alcohol Use History: None Reported Past Drug Use History: None Reported - Past Family History Father Family Medical History: Diabetes Mellitus Mother Family Medical History: No Reported History General Exam - General Exam Comments Initial Comments: GENERAL: Well-appearing, well-nourished and in no acute distress. HEAD: Atraumatic, normocephalic. EYES: Pupils equal round and reactive to light, extraocular movements intact, sclera anicteric, conjunctiva are normal. ENT: TMs normal, nares patent, oropharynx clear without exudates. Moist mucous membranes. NECK: Normal range of motion, supple without lymphadenopathy or JVD. LUNGS: Breath sounds clear to auscultation bilaterally and equal. No wheezes rales or rhonchi. HEART: Regular rate and rhythm without murmurs, rubs or gallops. ABDOMEN: Generalized upper abdominal tenderness. Soft, normoactive bowel sounds. No guarding, no rebound. No masses appreciated. : Deferred EXTREMITIES: Normal range of motion, no pitting or edema. No clubbing or cyanosis. NEUROLOGICAL: Cranial nerves II through XII grossly intact. Normal speech, normal gait. PSYCH: Normal mood, normal affect. SKIN: Warm, Dry, normal turgor, no rashes or lesions noted. Limitations: no limitations Course Vital Signs 03/05/19 16:55 Temperature 98.7 F Pulse Rate 90 Respiratory 16 Rate Blood Pressure 141/81 O2 Sat by Pulse 100 Oximetry Medical Decision Making - Medical Decision Making Patient is a 38-year-old female presenting with nausea and vomiting since last night. Patient admits to having diarrhea yesterday but has since cleared up today. Patient is having mild upper abdominal cramping but no pain. Upon arrival vital signs are stable, afebrile. On exam patient has mild epigastric tenderness, rest of exam is unremarkable. CBC, CMP, UA are all within normal l imits. Lactic acid is 1.5. Patient was given Zofran and fluids and reports improvement in symptoms. Patient is stable for discharge at this time. Discussed with patient this is most likely viral and/or food related. Patient will be discharged with Zofran. Return parameters were discussed with the patient she verbalized understanding. Case discussed with Dr. Dobbs. - Lab Data Result diagrams: 03/05/19 17:36 03/05/19 17:36 Lab Results 03/05/19 03/05/19 03/05/19 Range/Units 17:36 17:36 17:36 WBC 6.2 (3.8-10.6) k/uL RBC 4.43 (3.80-5.40) m/uL Hgb 13.0 (11.4-16.0) gm/dL Hct 38.5 (34.0-46.0) % MCV 86.8 (80.0-100.0) fL MCH 29.4 (25.0-35.0) pg MCHC 33.9 (31.0-37.0) g/dL RDW 14.6 (11.5-15.5) % Plt Count 265 (150-450) k/uL Neutrophils % 88 % Lymphocytes % 8 % Monocytes % 2 % Eosinophils % 1 % Basophils % 0 % Neutrophils # 5.4 (1.3-7.7) k/uL Lymphocytes # 0.5 L (1.0-4.8) k/uL Monocytes # 0.1 (0-1.0) k/uL Eosinophils # 0.0 (0-0.7) k/uL Basophils # 0.0 (0-0.2) k/uL Sodium 138 (137-145) mmol/L Potassium 4.6 (3.5-5.1) mmol/L Chloride 102 (98-107) mmol/L Carbon Dioxide 23 (22-30) mmol/L Anion Gap 13 mmol/L BUN 16 (7-17) mg/dL Creatinine 0.71 (0.52-1.04) mg/dL Est GFR (CKD-EPI)AfAm >90 (>60 ml/min/1.73 sqM) Est GFR (CKD-EPI)NonAf >90 (>60 ml/min/1.73 sqM) Glucose 169 H (74-99) mg/dL Plasma Lactic Acid Narendra (0.7-2.0) mmol/L Calcium 10.3 H (8.4-10.2) mg/dL Total Bilirubin 0.7 (0.2-1.3) mg/dL AST 33 (14-36) U/L ALT 22 (9-52) U/L Alkaline Phosphatase 78 (38-126) U/L Total Protein 8.7 H (6.3-8.2) g/dL Albumin 4.9 (3.5-5.0) g/dL Amylase 48 (30-110) U/L Lipase 88 (23-300) U/L Urine Color Urine Appearance (Clear) Urine pH (5.0-8.0) Ur Specific Poth (1.001-1.035) Urine Protein (Negative) Urine Glucose (UA) (Negative) Urine Ketones (Negative) Urine Blood (Negative) Urine Nitrite (Negative) Urine Bilirubin (Negative) Urine Urobilinogen (<2.0) mg/dL Ur Leukocyte Esterase (Negative) Urine RBC (0-5) /hpf Urine WBC (0-5) /hpf Ur Squamous Epith Cells (0-4) /hpf Amorphous Sediment (None) /hpf Hyaline Casts (0-2) /lpf Urine Mucus (None) /hpf Urine HCG, Qual Not Detected (Not Detectd) 03/05/19 03/05/19 Range/Units 17:36 17:36 WBC (3.8-10.6) k/uL RBC (3.80-5.40) m/uL Hgb (11.4-16.0) gm/dL Hct (34.0-46.0) % MCV (80.0-100.0) fL MCH (25.0-35.0) pg MCHC (31.0-37.0) g/dL RDW (11.5-15.5) % Plt Count (150-450) k/uL Neutrophils % % Lymphocytes % % Monocytes % % Eosinophils % % Basophils % % Neutrophils # (1.3-7.7) k/uL Lymphocytes # (1.0-4.8) k/uL Monocytes # (0-1.0) k/uL Eosinophils # (0-0.7) k/uL Basophils # (0-0.2) k/uL Sodium (137-145) mmol/L Potassium (3.5-5.1) mmol/L Chloride (98-107) mmol/L Carbon Dioxide (22-30) mmol/L Anion Gap mmol/L BUN (7-17) mg/dL Creatinine (0.52-1.04) mg/dL Est GFR (CKD-EPI)AfAm (>60 ml/min/1.73 sqM) Est GFR (CKD-EPI)NonAf (>60 ml/min/1.73 sqM) Glucose (74-99) mg/dL Plasma Lactic Acid Narendra 1.5 (0.7-2.0) mmol/L Calcium (8.4-10.2) mg/dL Total Bilirubin (0.2-1.3) mg/dL AST (14-36) U/L ALT (9-52) U/L Alkaline Phosphatase (38-126) U/L Total Protein (6.3-8.2) g/dL Albumin (3.5-5.0) g/dL Amylase (30-110) U/L Lipase (23-300) U/L Urine Color Yellow Urine Appearance Cloudy H (Clear) Urine pH 5.5 (5.0-8.0) Ur Specific Poth 1.027 (1.001-1.035) Urine Protein Trace H (Negative) Urine Glucose (UA) Negative (Negative) Urine Ketones 2+ H (Negative) Urine Blood Negative (Negative) Urine Nitrite Negative (Negative) Urine Bilirubin Negative (Negative) Urine Urobilinogen <2.0 (<2.0) mg/dL Ur Leukocyte Esterase Negative (Negative) Urine RBC 1 (0-5) /hpf Urine WBC 3 (0-5) /hpf Ur Squamous Epith Cells 2 (0-4) /hpf Amorphous Sediment Moderate H (None) /hpf Hyaline Casts 1 (0-2) /lpf Urine Mucus Moderate H (None) /hpf Urine HCG, Qual (Not Detectd) Disposition Clinical Impression: Nausea & vomiting, Dehydration, Gastroenteritis Disposition: HOME SELF-CARE Condition: Stable Instructions (If sedation given, give patient instructions): Acute Nausea and Vomiting (ED) Additional Instructions: Please return to the Emergency Department if symptoms worsen or any other concerns. Prescriptions: Ondansetron Odt [Zofran Odt] 4 mg PO Q8HR PRN #10 tab PRN Reason: Nausea Is patient prescribed a controlled substance at d/c from ED?: No Referrals: Leni Flanagan MD [Primary Care Provider] - 1-2 days
[2019-03-05 19:14] VITALS: BP 119/65; PULSE 60; TEMP 98.2
== END 2019-03-05 19:16 | disposition home or self-care (01) ==
LOC: EC 16:53
DX: K52.9 Noninfective gastroenteritis and colitis, unspecified (principal); E86.0 Dehydration; E11.42 Type 2 diabetes mellitus with diabetic polyneuropathy; I10 Essential (primary) hypertension; E07.9 Disorder of thyroid, unspecified; F32.9 Major depressive disorder, single episode, unspecified; F41.9 Anxiety disorder, unspecified; Z79.84 Long term (current) use of oral hypoglycemic drugs; Z79.890 Hormone replacement therapy; Z79.899 Other long term (current) drug therapy; Z86.14 Personal history of Methicillin resistant Staphylococcus aureus infection
CPT/HCPCS: 36415; 80053; 82150; 83605; 83690; 85025; 81001; 81025; 99284; 96374; 96361; J2405

== ENCOUNTER 2024-03-14 12:34 | Inpatient (IN) | payer OTHER ==
[2024-03-14] MEDS: SODIUM CHLORIDE 0.9% 1,000 ML IV ONE (12:35)
[2024-03-14 13:30] LABS: Glucose,Whole Blood 254 mg/dL (70-110)
[2024-03-14] MEDS ORDERED: VERAPAMIL 2.5 MG/ML 2 ML AMP ONE (14:08)
[2024-03-14] MEDS ORDERED: fentaNYL (PF) 50 MCG/ML 2 ML AMP ONE (14:20)
[2024-03-14] MEDS ORDERED: HEPARIN SODIUM 1,000 UN/ML (10ML VL) ONE (14:21)
[2024-03-14] MEDS: fentaNYL (PF) 50 MCG/ML 2 ML AMP IVP ONE (14:23)
[2024-03-14] MEDS: MIDAZOLAM 2 MG/2 ML VIAL IVP ONE (14:23)
[2024-03-14] MEDS: HEPARIN SODIUM 1,000 UN/ML (10ML VL) IV ONE ×2 (14:27→14:50)
[2024-03-14] MEDS: NITROGLYCERIN 1000MCG/10ML SYRINGE INTRACORON ONE (14:43)
[2024-03-14] MEDS: IOPAMIDOL-370 100ML BTL INJ ONE (14:46)
[2024-03-14] MEDS ORDERED: ZOLPIDEM 5 MG TAB PO PRN (14:47)
[2024-03-14] MEDS ORDERED: MAG HYDROX/AL HYDROX/SIMETH 30 ML CUP PO PRN (14:47)
[2024-03-14] MEDS ORDERED: RX INFO: IV CONTRAST WAS GIVEN 1 EACH MISC MISCELLANE PRN (14:47)
[2024-03-14] MEDS ORDERED: NITROGLYCERIN SL TABS 0.4 MG TAB SUBLINGUAL PRN (14:47)
[2024-03-14] MEDS ORDERED: ATROPINE SULFATE 0.1 MG/ML 10ML SYRINGE IV PRN (14:47)
[2024-03-14] MEDS: HEPARIN SODIUM,PORCINE 10,000 UNIT in SODIUM CHLORIDE 0.9% 1,000 ML IRRIGATION ONE (14:50)
[2024-03-14] MEDS: HEPARIN SODIUM,PORCINE (1 ML) 2,500 UNIT in SODIUM CHLORIDE 0.9% 250 ML IRRIGATION ONE (14:50)
--- NOTE | 2024-03-14 14:50 | P.PCN ---
Date of Procedure: 03/14/24 Operative Findings: PERCUTANEOUS CORONARY INTERVENTION Performing physician Keith Peterson M.D. Procedure Performed: 1. Successful stenting of the proximal LAD using 3.5 x 12 Xience drug-eluting stent with an excellent angiographic results. 2. Adjunctive use of intravascular imaging IVUS Indication: Symptomatic a 43-year-old female patient who underwent a heart catheterization that revealed critical disease involving the proximal LAD Approach: Right radial artery Complications: None Level of Sedation: Moderate with a sedation length of 20 minutes Procedure Discussion: Please refer to diagnostic heart catheterization was performed earlier with anticoagulation was initiated using heparin with continuous ACT monitoring. Subsequently did engage the left main using JL 3 guiding catheter with I did wire the LAD using a run-through wire. Intravascular ultrasound was performed and showed a diameter around 3.5 mm. Predilatation was performed using 3 mm noncompliant balloon before it was 3.5 x 12 mm stent where the stent was positioned under fluoroscopy guidance and deployed under fluoroscopic guidance and postdilated using 3.5 mm noncompliant balloon with final angiogram showing excellent angiographic results and the procedure was completed with no complication Postprocedure Management: 1. Dual antiplatelet therapy for at least 6-month to 12-month 2. Aggressive cholesterol control 3. Risk factors modification
[2024-03-14 16:10] LABS: Glucose,Whole Blood 260 mg/dL (70-110)
[2024-03-14] MEDS: SODIUM CHLORIDE 0.9% 1,000 ML in EMPTY BAG 1 BAG IV SCH (18:34)
[2024-03-14 20:23] LABS: Glucose,Whole Blood 306 mg/dL (70-110)
[2024-03-14 21:34] LABS: Glucose,Whole Blood 335 mg/dL (70-110)
[2024-03-14] MEDS: ATORVASTATIN 80 MG TAB PO SCH (21:43)
[2024-03-14] MEDS: INSULIN ASPART (NovoLOG) 100 UNIT/ML VIAL SQ SCH (21:43)
[2024-03-15] MEDS ORDERED: DEXTROSE 50% SYRINGE 50 ML IVP PRN ×2 (05:57)
[2024-03-15 05:58] LABS: Glucose,Whole Blood 292 mg/dL (70-110)
[2024-03-15] MEDS: INSULIN DETEMIR (LEVEMIR) 100 UNIT/ML SYR SQ SCH (06:37)
[2024-03-15] MEDS: ASPIRIN 81 MG PO SCH (08:25)
[2024-03-15] MEDS: PRASUGREL 10 MG TAB PO SCH (08:25)
[2024-03-15] MEDS ORDERED: CLOPIDOGREL 75 MG TAB PO SCH (09:00)
[2024-03-15 10:05] LABS: HCT 43.1 % (34.0-46.0); HGB 13.8 gm/dL (11.4-16.0); Hypochromasia Slight; MCH 30.3 pg (25.0-35.0); MCHC 31.9 g/dL (31.0-37.0); MCV 94.9 fL (80.0-100.0); Mean Platelet Volume 6.9; Platelet Count 307 k/uL (150-450); RBC 4.54 m/uL (3.80-5.40); RDW 13.6 % (11.5-15.5); WBC 4.5 k/uL (3.8-10.6)
[2024-03-15 10:08] LABS: African American GFR (CKD) >90 (>60 ml/min/1.73 sqM); Non-African American GFR(CKD) >90 (>60 ml/min/1.73 sqM)
[2024-03-15 10:10] LABS: ALT 37 U/L (4-34); AST 41 U/L (14-36); African American GFR (CKD) >90 (>60 ml/min/1.73 sqM); Albumin 4.6 g/dL (3.5-5.0); Alkaline Phosphatase 107 U/L (38-126); Anion Gap 11 mmol/L; Blood Urea Nitrogen 15 mg/dL (7-17); Calcium 9.9 mg/dL (8.4-10.2); Carbon Dioxide 20 mmol/L (22-30); Chloride 102 mmol/L (98-107); Glucose 496 mg/dL (74-99); Non-African American GFR(CKD) >90 (>60 ml/min/1.73 sqM); Potassium 4.5 mmol/L (3.5-5.1); Sodium 133 mmol/L (137-145); Total Bilirubin 0.8 mg/dL (0.2-1.3); Total Protein 7.7 g/dL (6.3-8.2)
--- NOTE | 2024-03-15 11:27 | P.PN ---
Subjective Progress Note Date: 03/15/24 This is a 43-year-old female with past medical history of diabetes mellitus type 2, hypertension, hypothyroidism, diabetic neuropathy, previous amputation of the left great toe. Patient has no previous cardiac history. She initially presented to [facility] and underwent heart catheterization which revealed critical disease involving the proximal LAD. Patient was transferred to [facility] and underwent successful stenting of the proximal LAD with a RISA under the care of Dr. Peterson. The patient denies having any chest pain or shortness of breath. EF is 30 to 35%. Blood pressure is on the low side at 90/57, heart rate between 60 and 80. Patient is not currently on a beta-b locker. Patient does not have insurance coverage so Brilinta was changed to Plavix. Telemetry is sinus rhythm. EKG with minimal nonspecific ST-T wave changes. Physical examination: Gen: This is a 43-year-old female in no acute distress VS: reviewed HEENT: Head is atraumatic, normocephalic. Pupils equal, round. Sclerae is anicteric. NECK: Supple. No JVD. LUNGS: Clear to auscultation. No wheezes or rhonchi. No intercostal retractions. HEART: Regular rate and rhythm. Systolic murmur. ABDOMEN: Soft No tenderness. EXTREMITIES: No pedal edema. No calf tenderness. NEUROLOGICAL: Patient is awake, alert and oriented x3. Assessment: Non-ST elevated myocardial infarction status post stenting of the proximal LAD Ischemic cardiomyopathy with EF of 30 to 35% Hypertension Hypothyroidism Diabetes mellitus type 2 Diabetic neuropathy Previous amputation of the left great toe. Plan: Continue current cardiac medications Transition Brilinta to Plavix as patient does not have insurance Patient is not on a beta-keith due to bradycardia Monitor blood pressure Further recommendations to follow based upon clinical course Nurse practitioner note has been reviewed, I agree with documented findings and plan of care. Patient was seen and examined. Note Objective - Vital Signs Vital signs: Vital Signs Temp 97.8 F 03/15/24 08:06 Pulse 87 03/15/24 08:06 Resp 14 03/15/24 08:06 BP 90/57 03/15/24 08:06 Pulse Ox 96 03/15/24 08:06 FiO2 Intake & Output 03/14/24 03/15/24 03/15/24 18:59 06:59 18:59 Intake Total 1018 150 650 Balance 1018 150 650 Weight 90.7 kg Intake: IV 400 Oral 618 150 650 Other: Voiding Method Toilet # Voids 0 # Bowel Movements 0 - Labs CBC & Chem 7: 03/15/24 09:35 03/15/24 09:35 Labs: Abnormal Lab Results - Last 24 Hours (Table) 03/14/24 03/14/24 03/14/24 Range/Units 13:28 16:10 20:20 POC Glucose (mg/dL) 254 H 260 H 306 H (70-110) mg/dL 03/14/24 03/15/24 Range/Units 21:31 05:48 POC Glucose (mg/dL) 335 H 292 H (70-110) mg/dL
[2024-03-15 11:29] LABS: Glucose,Whole Blood 327 mg/dL (70-110)
--- NOTE | 2024-03-15 12:26 | P.HPIM ---
History of Present Illness H&P Date: 03/15/24 History of present illness; patient is a 43-year-old lady with past medical history significant for diabetes mellitus, hypertension, hypothyroidism, who presented to [facility] as a transfer from [facility] for coronary angiography. Patient states that she was all right 2 weeks ago when she started noticing intermittent chest pain, chest pain was central location, nonradiating, pressure-like, no association with shortness of breath. There was no aggravating or relieving that associated chest pain. Denied any palpitation. Because of this chest pain patient presented to [facility] where she was found to have critical stenosis involving LAD. Patient was transferred to [facility] and was taken to cardiac [employer] and underwent Successful stenting of the proximal LAD using 3.5 x 12 Xience drug-eluting stent with an excellent angiographic results. Patient was admitted to medicine service REVIEW OF SYSTEMS: CONSTITUTIONAL: No fever, no malaise, no fatigue. HEENT: No recent visual problems or hearing problems. Denied any sore throat. CARDIOVASCULAR: As mentioned above PULMONARY: As mentioned above GASTROINTESTINAL: No diarrhea, no nausea, no vomiting, no abdominal pain. NEUROLOGICAL: No headaches, no weakness, no numbness. HEMATOLOGICAL: Denies any bleeding or petechiae. GENITOURINARY: Denies any burning micturition, frequency, or urgency. MUSCULOSKELETAL/RHEUMATOLOGICAL: Denies any joint pain, swelling, or any muscle pain. ENDOCRINE: Denies any polyuria or polydipsia. The rest of the 14-point review of systems is negative. PHYSICAL EXAMINATION: GENERAL: The patient is alert and oriented x3, not in any acute distress. Well developed, well nourished. HEENT: Pupils are round and equally reacting to light. EOMI. No scleral icterus. No conjunctival pallor. Normocephalic, atraumatic. No pharyngeal erythema. No thyromegaly. CARDIOVASCULAR: S1 and S2 present. No murmurs, rubs, or gallops. PULMONARY: Chest is clear to auscultation, no wheezing or crackles. ABDOMEN: Soft, nontender, nondistended, normoactive bowel sounds. No palpable organomegaly. MUSCULOSKELETAL: No joint swelling or deformity. EXTREMITIES: No cyanosis, clubbing, or pedal edema. NEUROLOGICAL: Gross neurological examination did not reveal any focal deficits. SKIN: No rashes. Assessment and plan Coronary artery disease status post stenting of proximal LAD Ischemic cardiomyopathy Hypertension Diabetes mellitus Hypothyroidism Monitor vital signs Monitor CBC Monitor CMP Continue telemetry monitoring Status post stenting of the proximal LAD using 3.5 x 12 Xience drug-eluting stent with an excellent angiographic results. Continue aspirin and Plavix Monitor blood sugar levels Continue Levemir and sliding scale insulin Cardiology following Labs and medication were reviewed.. Continue same treatment. Continue with symptomatic treatment. Resume home medication. Monitor labs and vitals. DVT and GI prophylaxis. Further recommendations as per clinical course of the patient Dictation was produced using [employer] dictation software. please excuse any grammatical, word or spelling errors. Past Medical History Past Medical History: Diabetes Mellitus, Hypertension, Thyroid Disorder Additional Past Medical History / Comment(s): heart murmur, neuropathy hands and feet History of Any Multi-Drug Resistant Organisms: MRSA Date of last positivie culture/infection: 07/19/2011 MDRO Source:: left great toe Additional Past Surgical History / Comment(s): amputation left great toe Past Anesthesia/Blood Transfusion Reactions: No Reported Reaction Past Psychological History: Anxiety, Depression Smoking Status: Never smoker Past Alcohol Use History: None Reported Past Drug Use History: None Reported - Past Family History Father Family Medical History: Diabetes Mellitus Sister(s) Family Medical History: Congestive Heart Failure (CHF) Mother Family Medical History: No Reported History Additional Family Medical History / Comment(s): maternal grandmother-CVA Medications and Allergies Home Medications Medication Instructions Recorded Confirmed Type No Known Home Medications 03/14/24 03/14/24 History Allergies Allergy/AdvReac Type Severity Reaction Status Date / Time No Known Allergies Allergy Verified 03/14/24 16:04 Physical Exam Vitals: Vital Signs Temp Pulse Pulse Resp BP BP Pulse Ox 03/15/24 08:06 97.8 F 87 14 90/57 96 03/15/24 04:00 97.8 F 71 16 102/63 96 03/15/24 00:03 97.8 F 68 14 100/61 97 03/14/24 20:30 97.7 F 76 14 109/68 99 03/14/24 16:32 81 18 106/61 98 03/14/24 16:02 78 17 124/84 98 03/14/24 15:32 81 18 112/78 98 03/14/24 15:17 69 18 114/75 97 03/14/24 14:32 98.6 F 66 16 112/72 115/70 97 Intake and Output 03/14/24 03/15/24 03/15/24 22:59 06:59 14:59 Intake Total 618 150 650 Balance 618 150 650 Intake: Oral 618 150 650 Other: Voiding Method Toilet Toilet # Bowel Movements 0 Weight 90.7 kg Results CBC & Chem 7: 03/15/24 09:35 03/15/24 09:35 Labs: Abnormal Lab Results - Last 24 Hours (Table) 03/14/24 03/14/24 03/14/24 Range/Units 13:28 16:10 20:20 POC Glucose (mg/dL) 254 H 260 H 306 H (70-110) mg/dL 03/14/24 03/15/24 Range/Units 21:31 05:48 POC Glucose (mg/dL) 335 H 292 H (70-110) mg/dL Thrombosis Risk Factor Assmnt - Choose All That Apply Any of the Below Risk Factors Present?: Yes Each Factor Represents 1 point: Age 41-60 years, Obesity (BMI >25) Other Risk Factors: No Other congenital or acquired thrombophilia - If yes, enter type in comment: No Thrombosis Risk Factor Assessment Total Risk Factor Score: 2 Thrombosis Risk Factor Assessment Level: Low Risk
[2024-03-15 15:16] VITALS: BMI 34.3
[2024-03-15 16:36] LABS: Glucose,Whole Blood 230 mg/dL (70-110)
[2024-03-15 20:23] LABS: Glucose,Whole Blood 290 mg/dL (70-110)
[2024-03-16 05:54] LABS: Glucose,Whole Blood 204 mg/dL (70-110)
[2024-03-16] MEDS: CLOPIDOGREL 75 MG TAB PO SCH (08:27)
[2024-03-16 10:03] LABS: HCT 43.5 % (34.0-46.0); Hypochromasia Slight; MCH 30.3 pg (25.0-35.0); MCHC 32.2 g/dL (31.0-37.0); MCV 93.9 fL (80.0-100.0); Mean Platelet Volume 6.9; Platelet Count 306 k/uL (150-450); RBC 4.63 m/uL (3.80-5.40); RDW 13.6 % (11.5-15.5); WBC 4.6 k/uL (3.8-10.6)
[2024-03-16 10:57] LABS: ALT 37 U/L (4-34); AST 46 U/L (14-36); African American GFR (CKD) >90 (>60 ml/min/1.73 sqM); Albumin 4.5 g/dL (3.5-5.0); Alkaline Phosphatase 101 U/L (38-126); Anion Gap 8 mmol/L; Blood Urea Nitrogen 14 mg/dL (7-17); Calcium 10.2 mg/dL (8.4-10.2); Carbon Dioxide 26 mmol/L (22-30); Chloride 100 mmol/L (98-107); Glucose 325 mg/dL (74-99); Non-African American GFR(CKD) >90 (>60 ml/min/1.73 sqM); Potassium 4.6 mmol/L (3.5-5.1); Sodium 134 mmol/L (137-145); Total Bilirubin 0.9 mg/dL (0.2-1.3)
--- NOTE | 2024-03-16 10:57 | P.PN ---
Subjective Progress Note Date: 03/16/24 This is a 43-year-old female with past medical history of diabetes mellitus type 2, hypertension, hypothyroidism, diabetic neuropathy, previous amputation of the left great toe. Patient has no previous cardiac history. She initially presented to [facility] and underwent heart catheterization which revealed critical disease involving the proximal LAD. Patient was transferred to [facility] and underwent successful stenting of the proximal LAD with a RISA under the care of Dr. Peterson. The patient denies having any chest pain or shortness of breath. EF is 30 to 35%. Blood pressure is on the low side at 90/57, heart rate between 60 and 80. Patient is not currently on a beta-b locker. Patient does not have insurance coverage so Brilinta was changed to Plavix. Telemetry is sinus rhythm. EKG with minimal nonspecific ST-T wave changes. 03/16 Patient denies having any chest pain or shortness of breath. Her blood pressure remains on the low side at 98/55, heart rate is in the 70s and 80s, pulse ox 98% on room air. Physical examination: Gen: This is a 43-year-old female in no acute distress VS: reviewed HEENT: Head is atraumatic, normocephalic. Pupils equal, round. Sclerae is anicteric. NECK: Supple. No JVD. LUNGS: Clear to auscultation. No wheezes or rhonchi. No intercostal retractions. HEART: Regular rate and rhythm. Systolic murmur. ABDOMEN: Soft No tenderness. EXTREMITIES: No pedal edema. No calf tenderness. NEUROLOGICAL: Patient is awake, alert and oriented x3. Assessment: Non-ST elevated myocardial infarction status post stenting of the proximal LAD Ischemic cardiomyopathy with EF of 30 to 35% Hypertension Hypothyroidism Diabetes mellitus type 2 Diabetic neuropathy Previous amputation of the left great toe. Plan: Continue current cardiac medications Continue Plavix Patient is not on a beta-keith due to hypotension and not on LINDA inhibitor due to hypotension Increase activity If patient is without chest pain with activity, she is cleared for discharge from cardiology May follow-up in the office in 1 to 2 weeks. Nurse practitioner note has been reviewed, I agree with documented findings and plan of care. Patient was seen and examined. Note Objective - Vital Signs Vital signs: Vital Signs Temp 97.6 F 03/16/24 04:00 Pulse 72 03/16/24 04:00 Resp 16 03/16/24 04:00 BP 95/56 03/16/24 04:00 Pulse Ox 99 03/16/24 04:00 FiO2 Intake & Output 03/15/24 03/16/24 03/16/24 18:59 06:59 18:59 Intake Total 2150 Balance 2150 Weight 90.7 kg Intake: Oral 2149 Other: Voiding Method Toilet # Voids 2 - Labs CBC & Chem 7: 03/16/24 09:29 03/15/24 09:35 Labs: Abnormal Lab Results - Last 24 Hours (Table) 03/15/24 03/15/24 03/15/24 Range/Units 09:35 09:35 11:28 Sodium 133 L (137-145) mmol/L Carbon Dioxide 20 L (22-30) mmol/L Glucose 496 H (74-99) mg/dL POC Glucose (mg/dL) 327 H (70-110) mg/dL Hemoglobin A1c 12.3 H (<=6.0) % AST 41 H (14-36) U/L ALT 37 H (4-34) U/L 03/15/24 03/15/24 03/16/24 Range/Units 16:34 20:21 05:52 Sodium (137-145) mmol/L Carbon Dioxide (22-30) mmol/L Glucose (74-99) mg/dL POC Glucose (mg/dL) 230 H 290 H 204 H (70-110) mg/dL Hemoglobin A1c (<=6.0) % AST (14-36) U/L ALT (4-34) U/L
[2024-03-16 11:31] VITALS: BP 111/73; PULSE 78; RESP 18; TEMP 98
[2024-03-16 11:48] LABS: Glucose,Whole Blood 265 mg/dL (70-110)
--- NOTE | 2024-03-16 13:29 | P.DS ---
Providers Date of admission: 03/14/24 12:40 Expected date of discharge: 03/16/24 Attending physician: Gaurang Chu Consults: 03/14/24 14:47 Consult Physician Routine Consulting Provider: [facility] Consult Reason/Comments: Post Interventional Patient Do you want consulting provider notified?: Already Contacted Primary care physician: Stated None Hospital Course: Discharge diagnoses; Coronary artery disease status post stenting of proximal LAD Ischemic cardiomyopathy Hypertension Diabetes mellitus Hypothyroidism Hospital course; patient is a 43-year-old lady with past medical history significant for diabetes mellitus, hypertension, hypothyroidism, who presented to [facility] as a transfer from [facility] for coronary angiography. Patient states that she was all right 2 weeks ago when she started noticing intermittent chest pain, chest pain was central location, nonradiating, pressure-like, no association with shortness of breath. There was no aggravating or relieving that associated chest pain. Denied any palpitation. Because of this chest pain patient presented to [facility] where she was found to have critical stenosis involving LAD. Patient was transferred to [facility] and was taken to cardiac Local Coordinator and underwent Successful stenting of the proximal LAD using 3.5 x 12 Xience drug-eluting stent with an excellent angiographic results. Patient was admitted to medicine service 03/16. Patient seen and examined. Cardiology cleared the patient for discharge, patient to follow-up outpatient with cardiology, at this time patient is not on beta-blockers and lisinopril because of hypotension. Being discharged in stable condition PHYSICAL EXAMINATION: GENERAL: The patient is alert and oriented x3, not in any acute distress. Well developed, well nourished. HEENT: Pupils are round and equally reacting to light. EOMI. No scleral icterus. No conjunctival pallor. Normocephalic, atraumatic. No pharyngeal erythema. No thyromegaly. CARDIOVASCULAR: S1 and S2 present. No murmurs, rubs, or gallops. PULMONARY: Chest is clear to auscultation, no wheezing or crackles. ABDOMEN: Soft, nontender, nondistended, normoactive bowel sounds. No palpable organomegaly. MUSCULOSKELETAL: No joint swelling or deformity. EXTREMITIES: No cyanosis, clubbing, or pedal edema. NEUROLOGICAL: Gross neurological examination did not reveal any focal deficits. SKIN: No rashes. Dictation was produced using [employer] software. please excuse any grammatical, word or spelling errors. Patient Condition at Discharge: Fair Plan - Discharge Summary New Discharge Prescriptions: New Aspirin 81 mg PO DAILY #30 tab Insulin Detemir (Levemir) [Levemir] 14 unit SQ BID@0700,2099 30 Days #1 each Atorvastatin [Lipitor] 80 mg PO HS #30 tab Nitroglycerin Sl Tabs [Nitrostat] 0.4 mg SUBLINGUAL Q5M PRN #30 tab PRN Reason: Chest Pain Clopidogrel [Plavix] 75 mg PO DAILY #30 tab Discharge Medication List Aspirin 81 mg PO DAILY #30 tab 03/16/24 [Rx] Atorvastatin [Lipitor] 80 mg PO HS #30 tab 03/16/24 [Rx] Clopidogrel [Plavix] 75 mg PO DAILY #30 tab 03/16/24 [Rx] Insulin Detemir (Levemir) [Levemir] 14 unit SQ BID@0700,2100 30 Days #1 each 03/16/24 [Rx] Nitroglycerin Sl Tabs [Nitrostat] 0.4 mg SUBLINGUAL Q5M PRN #30 tab 03/16/24 [Rx] Discharge Disposition: HOME SELF-CARE
== END 2024-03-16 14:22 | disposition home or self-care (01) | DRG 322 ==
LOC: 3SCARD 12:40
PROVIDERS: ADMIT Internal Medicine; ATTEND Internal Medicine
PROC: B2111ZZ Fluoroscopy of Multiple Coronary Arteries using Low Osmolar Contrast (ICD-10-PCS; principal; 2024-03-14 16:05)
PROC: B240ZZ3 Ultrasonography of Single Coronary Artery, Intravascular (ICD-10-PCS; principal; 2024-03-14 16:05)
PROC: 4A023N7 Measurement of Cardiac Sampling and Pressure, Left Heart, Percutaneous Approach (ICD-10-PCS; principal; 2024-03-14 16:05)
PROC: 027034Z Dilation of Coronary Artery, One Artery with Drug-eluting Intraluminal Device, Percutaneous Approach (ICD-10-PCS; principal; 2024-03-14 16:05)
DX: I21.4 Non-ST elevation (NSTEMI) myocardial infarction (principal); E11.40 Type 2 diabetes mellitus with diabetic neuropathy, unspecified; I10 Essential (primary) hypertension; E03.9 Hypothyroidism, unspecified; I25.10 Atherosclerotic heart disease of native coronary artery without angina pectoris; I25.5 Ischemic cardiomyopathy; E66.9 Obesity, unspecified; Z68.34 Body mass index [BMI] 34.0-34.9, adult; F41.9 Anxiety disorder, unspecified; F32.A Depression, unspecified; Z89.412 Acquired absence of left great toe; Z79.02 Long term (current) use of antithrombotics/antiplatelets